=== PATIENT | female | born 1945 | race Caucasian/White ===

== ENCOUNTER 2020-08-23 18:01 | Inpatient (IN) | payer MEDICARE ==
--- NOTE | 2020-08-23 19:03 | RAD ---
Exam:4 views of right foot HISTORY: Fall. Pain. Swelling. COMPARISON: None FINDINGS: Calcaneal fracture with subtalar extension. Associated soft tissue swelling. Lisfranc align ment is maintained. IMPRESSION: Calcaneal fracture.
--- NOTE | 2020-08-23 19:04 | RAD ---
Exam:4 views left foot HISTORY: Fall. Pain. COMPARISON: None FINDINGS: Calcaneal fracture, comminuted with subtalar extension. Lisfranc alignment is maintained. J oint spaces are preserved. There is soft tissue swelling at the level of the calcaneus. IMPRESSION: Calcaneal fracture with associated soft tissue swelling.
--- NOTE | 2020-08-23 19:05 | RAD ---
Exam:Right ankle 3 views HISTORY: Fall. Pain. COMPARISON: None FINDINGS: Calcaneal fracture with associated soft tissue swelling Ankle mortise is intact. No evidence of a ankle fracture. IMPRESSION: Calcaneal fracture with associated soft tissue swelling.
--- NOTE | 2020-08-23 19:06 | RAD ---
Exam:3 views left ankle HISTORY: Trauma. Fall. Pain. COMPARISON: None FINDINGS: Calcaneal fracture with associated soft tissue swelling. Ankle mortise is intact. No eviden ce of a ankle fracture. There is soft tissue swelling. IMPRESSION: Soft tissue swelling and calcaneal fracture. No evidence of a fracture at the level of th e ankle.
[2020-08-23 20:10] LABS: #Basophils 0.1 thou/uL (0.0-0.2); #Eosinphils 0.1 thou/uL (0.0-0.7); #Lymphocytes 1.4 thou/uL (1.20-3.40); %Basophils 0.5 % (0.0-1.0); %Eosinophils 0.5 % (0.0-10.0); %Lymphocytes 9.3 % (21.0-51.0); %Monocytes 6.4 % (0.0-10.0); %Neutrophils 83.3 % (42.0-75.0); Mean Corpuscular HGB CONC 33.9 g/dL (32.0-36.0); Mean Corpuscular Hemoglobin 30.6 pg (27.0-31.0); Mean Corpuscular Volume 90.4 fL (78.0-98.0); Mean Platelet Volume 7.8 fL (7.4-10.4); Platelet Count 252 thou/uL (130-400); RBC Distribution Width 12.3 % (11.5-14.5); Red Blood Cell (RBC) Count 4.26 mill/uL (4.20-5.40); White Blood Cell (WBC) Count 15.6 thou/uL (4.8-10.8)
[2020-08-23] MEDS ORDERED: Acetaminophen 500 MG TAB ONE (20:18)
[2020-08-23] MEDS ORDERED: Ketorolac Tromethamine 30 MG/ML VIAL ONE (20:18)
[2020-08-23 20:30] LABS: ALT (SGPT) 14 U/L (8-55); AST (SGOT) 18 U/L (5-34); Albumin 4.1 g/dL (3.4-4.8); Alkaline Phosphatase 82 U/L (40-110); Anion Gap 16 mmol/L (10-20); BUN (Urea Nitrogen) 17 mg/dL (9.8-20.1); Bilirubin, Total 0.3 mg/dL (0.2-1.2); Calc. Creatinine Clearance 0 mL/min (70-130); Calcium 9.2 mg/dL (7.8-10.44); Carbon Dioxide 23 mmol/L (23-31); Chloride 102 mmol/L (98-107); Globulin 3.1 g/dL (2.4-3.5); Glucose 105 mg/dL (83-110); Potassium 4.1 mmol/L (3.5-5.1); Protein, Total 7.2 g/dL (6.0-8.3); Sodium 137 mmol/L (136-145)
[2020-08-23 20:46] LABS: INR-International Normal Ratio 0.9; Prothrombin Time 12.7 sec (12.0-14.7)
[2020-08-23 20:59] LABS: Phosphorus 3.2 mg/dL (2.3-4.7)
[2020-08-23] MEDS ORDERED: Morphine 2 MG/ML VIAL SLOW IVP PRN (21:10)
[2020-08-23] MEDS ORDERED: Ondansetron PF 4 MG/2 ML Vial IVP PRN (21:10)
[2020-08-23] MEDS ORDERED: Dextrose 50% Abboject 50 ML SYRINGE SLOW IVP PRN (21:10)
[2020-08-23] MEDS ORDERED: Dextrose 5% in Water 1,000 ML IV PRN (21:10)
[2020-08-23] MEDS ORDERED: hydrALAZINE 20 MG/ML VIAL SLOW IVP PRN (21:10)
--- NOTE | 2020-08-23 21:10 | RAD ---
Exam: Chest one view HISTORY:Status post trauma. Preoperative evaluation. Comparison: None FINDINGS: Cardiac silhouette: Normal Aorta: Atherosclerosis Pulmonary vessels: Normal Costophrenic angles: Clear LUNGS: No masses or consolidation. Chronic lung parenchymal changes are suspected. Pneumothorax: None Osseous abnormalities: None IMPRESSION: No acute cardiopulmonary process. Atherosclerosis
[2020-08-23] MEDS ORDERED: traMADol HCl 50 MG TAB PO PRN ×2 (21:13)
[2020-08-23] MEDS ORDERED: Cyclobenzaprine 10 MG TAB PO PRN (21:13)
[2020-08-23] MEDS ORDERED: Magnesium 2 GM/50 ML 2 GM in Premix Bag 1 BAG IVPB SCH ×2 (21:30→23:59)
[2020-08-23] MEDS ORDERED: PHOS-NAK 1 PKT PACK PO SCH (21:30)
--- NOTE | 2020-08-23 22:04 | HP ---
TRAUMA SURGEON: Dr. Wren. CONSULTING PHYSICIAN: Dr. Kim. HISTORY OF PRESENT ILLNESS: The patient is a 75-year-old female, who presented to the emergency department after a fall about 5 feet from a ladder. The patient reports that she was changing her air conditioner vent return filters when she lost her balance and fell backwards. States that she landed on her heels and then on her buttocks. She denies hitting her head. Reports no anticoagulation use. She then crawled to her bedroom and called her family. EMS brought her to the emergency department. At the time of my evaluation, she had splints to the bilateral lower extremities and she was complaining of bilateral heel pain. She denies numbness and tingling in her bilateral upper and lower extremities, nausea, vomiting, diarrhea, cough, chest pain, shortness of breath. States that she does not have any back or buttock pain. She lives at home alone. Her family lives out of town. REVIEW OF SYSTEMS: All additional 10-point review of systems negative except as indicated above. PAST MEDICAL HISTORY: Hypothyroidism, GERD, and vertigo. PAST SURGICAL HISTORY: Hysterectomy and bilateral knee surgeries for ligamentous injuries, and scope for cartilage-related issues. SOCIAL HISTORY: The patient denies tobacco, drug, and alcohol use. She does not use any walker or cane to get around. She lives at home alone. MEDICATIONS: Omeprazole and levothyroxine. ALLERGIES: NO KNOWN DRUG ALLERGIES. PHYSICAL EXAMINATION: VITAL SIGNS: Temperature 99.1, pulse 88, respirations 18, oxygen saturation 97% on room air, blood pressure 150/85. PRIMARY SURVEY: Airway intact. Adequate breath sounds bilaterally. 2+ pulses in bilateral radials, femorals, and DPs. GCS 15. Gross motor and sensation are intact. No lacerations, bruising, or external bleeding. She has splints to bilateral lower extremities. SECONDARY SURVEY: HEAD: Normocephalic, atraumatic. No gross palpable skull deformities or tenderness. EYES: Pupils 3-2, equal, round, reactive to light bilaterally. ENT: No signs of trauma. NECK: C-spine, no step-offs or deformities. Nontender. C-collar not in place. CHEST: Nontender. No crepitus. No abrasions or ecchymosis noted. ABDOMEN: Soft, nontender, nondistended. PELVIS: Stable to palpation. Nontender. No abrasions or ecchymosis noted. RECTAL: Deferred. GENITOURINARY: Deferred. EXTREMITIES: The patient has splints to bilateral lower extremities. No deformity is noted. 2+ pulses in bilateral radials, femorals, and DPs. BACK/SPINE: No step-offs or deformities or tenderness to palpation of thoracic or lumbar spine. No abrasions or ecchymosis noted. NEUROLOGIC: 5/5 strength in bilateral workers compensation adjuster, The patient is able to wiggle toes. Bilateral feet are splinted. Gross normal sensation x4 extremities. LABORATORY FINDINGS: White count 15.6, hemoglobin 13.0, hematocrit 38.5, platelets 252. INR 0.9. Sodium 137, potassium 4.1, chloride 107, bicarb 23, BUN 17, creatinine 1.05, glucose 105, phosphorus 3.2, magnesium 1.7, total bilirubin 0.3, AST 18, ALT 14, alkaline phosphatase 82. DIAGNOSTIC FINDINGS: Chest x-ray demonstrates no acute cardiopulmonary process, atherosclerosis. X-ray of the left foot demonstrates calcaneal fracture with associated soft tissue swelling. X-ray of the right ankle demonstrates calcaneal fracture with associated soft tissue swelling. X-ray of the left ankle demonstrates soft tissue swelling and calcaneal fracture. No evidence of a fracture at the level of the ankle. X-ray of the right foot demonstrates calcaneal fracture. ASSESSMENT: 1. Status post mechanical fall from 5 feet. 2. Bilateral calcaneal fractures. 3. History of gastroesophageal reflux disease, hypothyroidism, and vertigo. PLAN: The patient will be admitted to the Trauma Service. She will go to the regular surgical nursing floor. She will have a COVID test. Orthopedic Surgery was consulted. They reported they will evaluate the patient tomorrow, in case they want to do surgery, we will make the patient n.p.o. at midnight. Right now, she can have a regular diet. Repeat blood work in the morning. The patient will likely need placement in acute rehab facility regardless if she has surgery as she lives alone. This patient was discussed with Dr. Wren before this dictation. Job ID: [id number]
[2020-08-23 23:28] VITALS: BMI 34.8
[2020-08-23] MEDS: Acetaminophen 500 MG TAB PO SCH (23:36)
[2020-08-24] MEDS: Acetaminophen 500 MG TAB PO SCH ×4 (04:29→21:42)
[2020-08-24 06:54] LABS: SARS-CoV-2 MS2 Positive; SARS-CoV-2 N Gene Negative; SARS-CoV-2 S Gene Negative; SARS-CoV-2 by NAA Not Detected (NotDetected); SARS-CoV-2 orf1ab Negative
[2020-08-24] MEDS: Polyethylene Glycol 3350 17 GM Packet PO SCH (08:27)
[2020-08-24] MEDS: Senokot S 8.6-50 MG TAB PO SCH ×2 (08:27→21:42)
--- NOTE | 2020-08-24 09:52 | CON ---
DATE OF CONSULTATION: 08/24/2020 This is Denise Basurto PA-C dictating a report for Sony Kim MD. REQUESTING PHYSICIAN: Trauma Services. CONSULTING PHYSICIAN: Dr. Kim. REASON FOR CONSULTATION: Bilateral calcaneal fractures. HISTORY OF PRESENT ILLNESS: This is a 75-year-old female, who presented to our emergency department after a fall, 5 feet from a ladder. The patient states that she was changing her air conditioner vent return filters when she lost her balance and fell backwards landing onto her heels and then her buttocks. She denied head injury or loss of consciousness. No anticoagulation use. Workup in the emergency department revealed bilateral calcaneus fractures. We have been consulted for this reason. Currently at bedside, she denies any other pain other than in her heels. She denies any numbness or tingling. Denies any previous foot or ankle problems. Denies any head injury. PAST MEDICAL HISTORY: Significant for hypothyroidism, vertigo, and GERD. PAST SURGICAL HISTORY: Hysterectomy and bilateral knee surgeries for ligamentous injuries and knee scopes for cartilage related issues. SOCIAL HISTORY: Patient denies tobacco, alcohol, or drug use. She is an independent ambulator at home. She does live alone. ALLERGIES: NO KNOWN DRUG ALLERGIES. FAMILY HISTORY: Reviewed and noncontributory. MEDICATIONS: Omeprazole and levothyroxine. PHYSICAL EXAMINATION: VITAL SIGNS: Shows current vital signs including temperature 98 degrees, pulse rate 80, respiratory rate 16, O2 saturation of 96% on room air, and blood pressure 144/75. GENERAL: The patient is awake and alert. She is in no apparent distress. She is pleasant and cooperative with exam today. HEENT: Head is normocephalic and atraumatic. NECK: Supple. Trachea midline. Breathing is nonlabored. EXTREMITIES: Evaluation of bilateral lower extremities shows a short-leg posterior splint intact to bilateral lower extremities. Dressings overlying knees are clean, dry, and intact. She is able to wiggle her toes. Sensation intact. Capillary refill 3 seconds. Skin is intact at the splint edges. Bilateral upper extremities, she moves without any difficulty. No signs of trauma. RADIOGRAPHIC IMAGING: Reviewed today including bilateral ankle x-rays as well as bilateral foot x-rays, shows evidence of bilateral calcaneus fractures. The right calcaneus appears nondisplaced. Acceptable alignment. This fracture does travel into the joint. No other fractures are visualized. Ankle mortise is intact. This is a 3-part fracture of the calcaneus on the right. Views of the left calcaneus fracture demonstrate a calcaneus fracture which extends into the joint. There is minimal joint depression. No significant displacement. Otherwise, no fractures are visualized. Ankle mortise is intact. ASSESSMENT: Bilateral calcaneal fractures, nondisplaced. PLAN: At this time, we will plan for nonsurgical intervention. These fractures appear well aligned. We will treat this conservatively. The patient is in bilateral ankle splints. We will continue immobilization. She will be nonweightbearing to bilateral lower extremities. We did discuss the plan of care. She will likely be nonweightbearing for 2 to 3 months. We will let her eat and have therapy come work with her. They only focus on transfers. She will likely need rehab given that she is living at home alone. Job ID: [id number]
--- NOTE | 2020-08-24 18:26 | PRG ---
DATE OF SERVICE: HISTORY OF PRESENT ILLNESS: The patient is currently on the surgical floor. She is status post fall from approximately 5 feet off a ladder in which she sustained bilateral calcaneal fractures. The patient was evaluated this morning and Orthopedic determined that she would be best managed non-operatively as her fractures aligned quite well at this time. Unfortunately, the patient will be nonweightbearing for 2-3 months. Overnight, the patient had no issues. Her pain is controlled and we will discontinue her n.p.o. status. PHYSICAL EXAMINATION: VITAL SIGNS: Temperature is 98.0, heart rate 80, blood pressure 144/75, respirations 16, and oxygen saturation is 96% on room air. GENERAL: The patient is resting comfortably in bed. She is awake, alert, and oriented. [place] Coma Scale is 15. HEENT: Unremarkable. LUNGS: Clear to auscultation with good inspiratory and expiratory effort. HEART: Regular rate and rhythm. ABDOMEN: Soft, nondistended. EXTREMITIES: Neurovascularly intact x4. Bilateral lower extremities are immobilized in a posterior leg splint. She is neurovascularly intact x4. Capillary refill is less than 3 seconds. DIAGNOSTIC STUDIES: There are no labs or radiographs reviewed this morning. ASSESSMENT/PLAN: 1. Status post fall from ladder of approximately 5 feet. 2. Bilateral calcaneal fractures. 3. History of esophageal reflux disease, hypothyroidism, and vertigo. PLAN: Plan will be to begin physical and occupational therapy. Continue pain control, pulmonary toilet, gastritis and mechanical VTE prophylaxis. We will start chemical VTE prophylaxis in the morning and work on placement. The evaluation, examination were done with Dr. Shepherd during rounds this morning. Job ID: [id number]
[2020-08-24] MEDS: Ibuprofen 200 MG TAB PO SCH (21:42)
[2020-08-24] MEDS: Enoxaparin Sodium 30 MG/0.3 ML SYRINGE SC SCH (21:42)
[2020-08-25] MEDS: Acetaminophen 500 MG TAB PO SCH ×3 (02:45→14:57)
[2020-08-25] MEDS: Ibuprofen 200 MG TAB PO SCH ×2 (05:44→14:57)
[2020-08-25] MEDS ORDERED: Levothyroxine Sodium 112 MCG TAB PO SCH (08:30)
[2020-08-25] MEDS: Senokot S 8.6-50 MG TAB PO SCH (08:38)
[2020-08-25] MEDS: Enoxaparin Sodium 30 MG/0.3 ML SYRINGE SC SCH (08:38)
[2020-08-25] MEDS: Polyethylene Glycol 3350 17 GM Packet PO SCH (08:38)
[2020-08-25 12:00] VITALS: BP 164/71; TEMP 97.7
[2020-08-26] MEDS ORDERED: Levothyroxine Sodium 112 MCG TAB PO SCH (06:00)
--- NOTE | 2020-08-26 08:09 | DIS ---
DATE OF ADMISSION: 08/23/2020 DATE OF DISCHARGE: 08/25/2020 ADMISSION DIAGNOSES: 1. Status post fall from ladder approximately 5 feet. 2. Bilateral closed nondisplaced calcaneal fractures. 3. Acute pain secondary to above. 4. History of gastroesophageal reflux disease, hypothyroidism, and vertigo. CONSULTATIONS: Orthopedic, Dr. Kim. PROCEDURES: None. SUMMARY: The patient is a 75-year-old woman who was on a ladder when she fell backwards landing on both of her heels. She had severe pain, was able to get to her phone, call her son who called 911, and she was brought to the emergency department via ground EMS, where she underwent evaluation and on examination was noted to have the above injuries. She will be treated nonoperatively, but unfortunately she was going to be nonweightbearing on both lower extremities for approximately 2 to 3 months. The patient was discharged to inpatient rehab for continued therapy. At the time of discharge, the patient was tolerating a diet. Her pain was controlled and she was able to work with transfers and various other things with therapy. She will follow up with [facility] in 2 to 3 weeks or sooner as needed. She had her splints replaced by the orthopedic PA prior to departure to ensure that they were well padded. The patient will continue her home medications and pain medications during her rehab. The patient may follow up with Trauma Clinic as needed. Job ID: [id number]
== END 2020-08-25 15:45 | DRG 563 ==
LOC: ERS 18:01 → SURG B 21:13
PROVIDERS: ADMIT Specialist; ATTEND Specialist
DX: S92.001A Unspecified fracture of right calcaneus, initial encounter for closed fracture (principal); S92.002A Unspecified fracture of left calcaneus, initial encounter for closed fracture; W11.XXXA Fall on and from ladder, initial encounter; Z90.710 Acquired absence of both cervix and uterus; E03.9 Hypothyroidism, unspecified; K21.9 Gastro-esophageal reflux disease without esophagitis; Z79.890 Hormone replacement therapy; Z79.899 Other long term (current) drug therapy; Z20.822 Contact with and (suspected) exposure to COVID-19
CPT/HCPCS: 28400; 71045; 80053; 83735; 84100; 85025; 85610; 85730; 87635; 96374; G0390; J1650; J1885; J3475; U0003

== ENCOUNTER 2025-07-01 11:48 | Outpatient (CLI) | payer MEDICARE | END 2025-07-01 11:49 | disposition home or self-care (01) | LOC: BICMAMMO 11:48 | PROVIDERS: ATTEND Emergency Medicine | DX: M81.0 Age-related osteoporosis without current pathological fracture (principal) | CPT/HCPCS: 77080 ==

== ENCOUNTER 2025-08-17 09:43 | Emergency (ER) | payer MEDICARE ==
[2025-08-17 11:21] LABS: #Basophils 0.04 10x3/uL (0.0-0.2); #Eosinophils 0.12 10x3/uL (0.0-0.7); #Monocytes 0.80 10x3/uL (0.11-0.59); #Neutrophils 6.98 10x3/uL (1.40-6.50); %Basophils 0.4 % (0.0-1.0); %Eosinophils 1.3 % (0.0-10.0); %Lymphocytes 15.4 % (21.0-51.0); %Monocytes 8.5 % (0.0-10.0); %Neutrophils 74.0 % (42.0-75.0); Hematocrit 39.1 % (36.0-47.0); Hemoglobin 12.8 g/dL (12.0-16.0); Mean Corpuscular Hemoglobin 28.0 pg (27.0-31.0); Mean Corpuscular Volume 85.6 fL (78.0-98.0); Platelet Count 293 10x3/uL (130-400); Red Blood Cell (RBC) Count 4.57 mill/uL (4.20-5.40); White Blood Cell (WBC) Count 9.43 10x3/uL (4.8-10.8)
[2025-08-17 11:45] LABS: ALT (SGPT) 10 U/L (Less than 34); AST (SGOT) 19 U/L (11-34); Albumin 4.0 g/dL (3.1-4.5); Alkaline Phosphatase 89 U/L (40-110); Anion Gap 14 mmol/L (10-20); BUN (Urea Nitrogen) 14 mg/dL (9.8-20.1); Bilirubin, Total 0.4 mg/dL (0.3-1.2); Calc. Creatinine Clearance 0 mL/min (70-130); Calcium 9.5 mg/dL (7.8-10.44); Carbon Dioxide 26 mmol/L (23-31); Chloride 101 mmol/L (98-107); Globulin 3.3 g/dL (2.4-3.5); Glucose 122 mg/dL (83-110); Lipase 20 U/L (8-78); Potassium 4.6 mmol/L (3.5-5.1); Sodium 136 mmol/L (136-145)
== END 2025-08-17 13:24 | disposition home or self-care (01) ==
LOC: ERS 09:43
DX: J06.9 Acute upper respiratory infection, unspecified (principal); R07.89 Other chest pain; E03.9 Hypothyroidism, unspecified; Z79.890 Hormone replacement therapy; Z79.899 Other long term (current) drug therapy
CPT/HCPCS: 80053; 83690; 84484; 85025; 85379; 87428; 93005; 99283